=== PATIENT | female | born 1965 | race Caucasian/White ===

== ENCOUNTER 2020-06-07 10:11 | Emergency (ER) | payer OTHER, SELFPAY ==
[2020-06-07 10:15] VITALS: BP 147/67; PULSE 76; RESP 14; TEMP 36.6; O2SAT 96; BMI 24.3
--- NOTE | 2020-06-07 10:17 | DI.RAD.S_ITS ---
PROCEDURE: XR KNEE LT 3V INDICATIONS: fell on knee TECHNIQUE: 3 views of the knee were acquired. COMPARISON: None. FINDINGS: Bones: Vertical lateral patella fracture with minimal displacement. No suspicious bony lesions. Soft tissues: Moderate joint effusion. No suspicious soft tissue calcifications. IMPRESSION: Minimally displaced patellar fracture with associated knee joint effusion. Dictated by: Abdon Uriostegui M.D. on 06/07/2020 at 10:34 Approved by: Abdon Uriostegui M.D. on 06/07/2020 at 10:38
--- NOTE | 2020-06-07 10:35 | ED_ITS ---
HPI - Extremity Injury (Lower) General Chief Complaint: Extremity Injury, Lower Stated Complaint: Fell yesterday, thinks she needs knee checked out Time Seen by Provider: 06/07/20 10:27 Source: patient Mode of arrival: Wheelchair Limitations: no limitations History of Present Illness HPI Narrative: Patient is a 55-year-old female who presents with left knee pain. She and her or hiking when she fell directly on it yesterday. She was initially ambulatory on it but it was quite painful now she says she can barely walk. She did have a laceration on top of her knee which is closed now with butterfly Band-Aid. She is able to bend it but it does hurt. No numbness tingling or weakness MD complaint: knee injury Related Data Previous Rx's Medication Instructions Recorded hydrocodone-acetaminophen [[place]] 1 tab PO Q6H PRN #10 tab 06/07/20 Allergies Allergy/AdvReac Type Severity Reaction Status Date / Time Sulfa (Sulfonamide Allergy Verified 06/07/20 10:23 Antibiotics) Review of Systems Review of Systems Narrative: GENERAL: Denies chills,fever HEENT: Denies throat pain RESPIRATORY: Denies dyspnea, cough, wheezing CARDIOVASCULAR: Denies chest pain, palpitations GASTROINTESTINAL: Denies nausea, vomiting MUSCULOSKELETAL: See HPI SKIN: No rash, no laceration, no pruritus NEUROLOGIC: Denies weakness, dizziness, headache, numbness 8 point review of systems is negative except for those stated above and HPI Patient History Medical History Anxiety (Acute) Social History Smoking Status: Unknown if ever smoked Smoking Status: Unknown if ever smoked alcohol intake frequency: holidays/special occasions only Substance Use Type: does not use Exam Initial Vital Signs Initial Vital Signs: Vital Signs Temperature 97.8 F 06/07/20 10:15 Pulse Rate 76 06/07/20 10:15 Respiratory Rate 14 06/07/20 10:15 Blood Pressure 147/67 H 06/07/20 10:15 Pulse Oximetry 96 06/07/20 10:15 GENERAL: Well-appearing, well-nourished and in no acute distress. CARDIOVASCULAR: peripheral pulses in tact, cap refill <2 sec RESPIRATORY: No respiratory distress, speaks in full sentences without difficulty EXTREMITIES: Normal range of motion, no clubbing or edema. Neurovascularly intact Left lower extremity: Knee is mildly swollen able to flex slightly laceration is closed no erythema or drainage. Good distal pedal pulse NEUROLOGICAL: Cranial nerves II through XII grossly intact. Normal gait and speech. SKIN: Warm, dry, no petechiae, no rashes or lesions. Procedures Orthopedic Splinting/Casting Injury #1: Side: left Lower Extremity Injury Location: knee Lower Extremity Immobilizer: knee immobilizer Other Orthopedic Equipment: crutches Post splinting neuro exam: intact Post splinting vascular exam: intact Placed by: Nursing Course Orders Ordered: ED Orders 06/07/20 10:17 XR knee LT 3V Stat Vital Signs Vital signs: Vital Signs - 8 hr 06/07/20 10:15 Temperature 97.8 F Pulse Rate 76 Respiratory Rate 14 Blood Pressure 147/67 H Pulse Oximetry 96 MDM - Extremity Injury (Lower) Imaging Data Extremity x-ray #1: Radiologist's Impression: PROCEDURE: XR KNEE LT 3V INDICATIONS: fell on knee TECHNIQUE: 3 views of the knee were acquired. COMPARISON: None. FINDINGS: Bones: Vertical lateral patella fracture with minimal displacement. No suspicious bony lesions. Soft tissues: Moderate joint effusion. No suspicious soft tissue calcifications. IMPRESSION: Minimally displaced patellar fracture with associated knee joint effusion. Dictated by: Abdon Uriostegui M.D. on 06/07/2020 at 10:34 Discharge Plan Departure Patient Disposition: Home Clinical Impression: Closed fracture of left patella Qualifiers: Encounter type: initial encounter Fracture morphology: longitudinal Fracture alignment: displaced Qualified Code(s): S82.022A - Displaced longitudinal fracture of left patella, initial encounter for closed fracture Discharge Date/Time: 06/07/20 11:02 Instructions: DI for Patella Fracture Activity Restrictions/Additional Instructions: *You have been diagnosed with left patella fracture *What to do: Wear knee immobilizer and use crutches. This may require surgery please follow-up with orthopedics when you return home. Recommend calling her primary care provider today day *Continue to take medications as directed [place] 1 tablet every 6 hours only if needed for severe pain *Follow up with your primary care provider in 2-3 days *Return to ER if you should have increasing pain weakness numbness or any new, worsening or concerning symptoms CONTROLLED SUBSTANCE DISCHARGE (Narcotoic/benzodiazepine/Flexeril/Phenergan) 1. You have been prescribed narcotic medications, it does have acetaminophen/Tylenol/paracetamol in it so do not take extra Tylenol or Tylenol containing products TRAMADOL DOES NOT CONTAIN TYLENOL 2. Please understand that we cannot provide further refills of narcotics, benzodiazepines or controlled substances through the ED and her pain management will need to be through your provider. 3. While on these medications you cannot drive or operate heavy machinery. 4. You cannot sign legal documents or perform any duties such as this. 5. As long as you're taking opiate pain medications he should also be taking a stool softener such as Colace, Dulcolax, MiraLAX or prune juice, to help avoid constipation. Prescriptions: New hydrocodone-acetaminophen [[place]] 5-325 mg tablet 1 tab PO Q6H PRN (Reason: pain) Qty: 10 RF: 0
== END 2020-06-07 11:02 | disposition home or self-care (01) ==
LOC: ED 10:58
PROVIDERS: Emergency Provider Emergency Medicine
DX: S82.022A Displaced longitudinal fracture of left patella, initial encounter for closed fracture (principal); W19.XXXA Unspecified fall, initial encounter
CPT/HCPCS: 73562; 99283